=== PATIENT | male | born 1995 | race African-American/Black ===

== ENCOUNTER 2019-04-23 11:17 | Emergency (ER) | payer SELFPAY ==
[~2019-04-23] VITALS: Ht 182.9 cm; Wt 102.1 kg
[2019-04-23 11:40] VITALS: BP 151/64
[2019-04-23] MEDS ORDERED: DEXAMETHASONE SOD PHOS 20 MG/5 ML VIAL. PO ONE (12:15)
--- NOTE | 2019-04-23 12:19 | PHYS DOC ---
Past Medical History Past Medical History: No Pertinent History Past Surgical History: Other Additional Past Surgical Histo: ear tubes Smoking: Cigarettes, Less than 1pk/day Alcohol Use: None Drug Use: None Adult General Chief Complaint Chief Complaint: SORE THROAT [place] [employer] HPI Patient is a 23 year old AA male who presents to the emergency department with complaints of a sore throat, body aches, and bilateral ear pain for the last 2 days. Patient states that he has also had chills. He denies any measured fever. Patient denies any nausea, vomiting, diarrhea, abdominal pain, shortness of breath, rash, or wheezing. He states that he has had a dry cough. The patient currently rates his pain a 10 out of 10 on the pain scale he denies any alleviating factors. Patient states that his voice sounds strange today and that is why he came to the emergency department. He denies any known recent exposure to strep pharyngitis. All other ROS is neg unless otherwise noted in HPI. Review of Systems Review of Systems See Above Physical Exam Physical Exam See Above Constitutional: Well developed, well nourished, no acute distress, ill appearance. [] HENT: Normocephalic, atraumatic, bilateral external ears normal, erythema of posterior pharynx with 2+ tonsils bilaterally, oropharynx moist, no oral exudates, nose normal. [] Eyes: PERRLA, EOMI, conjunctiva normal, no discharge. [] Neck: Normal range of motion, no tenderness, supple, no stridor. [] Cardiovascular:Heart rate regular rhythm, no murmur [] Lungs & Thorax: Bilateral breath sounds clear to auscultation, Respirations even and unlabored, no retractions, no respiratory distress [] Skin: Warm, dry, no erythema, no rash. [] Back: No tenderness Extremities: No cyanosis, ROM intact, no edema. [] Neurologic: Alert and oriented X 3, no focal deficits noted. [] Psychologic: Affect normal, judgement normal, mood normal. [] Current Patient Data Vital Signs Vital Signs Date Time Temp Pulse Resp B/P (MAP) Pulse Ox O2 Delivery O2 Flow Rate FiO2 04/23/19 11:40 98.4 97 18 151/64 (93) 98 Room Air 98.4 EKG EKG [] Radiology/Procedures Radiology/Procedures Rapid strep negative[] Course & Med Decision Making Course & Med Decision Making Pertinent Labs and Imaging studies reviewed. (See chart for details) dx: Acute pharyngitis Rapid strep test is negative, patient was given 10 mg of Decadron in the emergency room by mouth. Advised patient that this is more than likely viral, encouraged salt water gargles as needed for comfort, recommend alternating Tylenol and ibuprofen as needed for fever/body aches. Increase clear fluids, follow-up with primary care doctor symptoms persist, return to the ER symptoms worsen Patient verbalized an understanding of home care, medications, follow-up, and return to ED instructions and was in agreement with the plan of care. [] Dragon Disclaimer Dragon Disclaimer This electronic medical record was generated, in whole or in part, using a voice recognition dictation system. Departure Departure Impression: Primary Impression: Acute pharyngitis Disposition: HOME, SELF-CARE Condition: STABLE Referrals: NO PCP (PCP) Patient Instructions: Viral and Bacterial Pharyngitis, [id number] Additional Instructions: Recommend warm salt water gargles as needed for relief of discomfort. Alternate Tylenol and ibuprofen as needed for fever/pain. Follow-up with primary care doctor if symptoms persist. Return to the ER if symptoms worsen. Problem Qualifiers Primary Impression: Acute pharyngitis Pharyngitis/tonsillitis etiology: unspecified etiology Qualified Codes: J02.9 - Acute pharyngitis, unspecified TARIK DIA APRN Apr 23, 2019 12:19
== END 2019-04-23 12:34 | disposition home or self-care (01) ==
LOC: ER 11:17
DX: J02.9 Acute pharyngitis, unspecified (principal); H92.03 Otalgia, bilateral
CPT/HCPCS: 87070; 87880; 99283; J1100